=== PATIENT | female | born 1940 | race Caucasian/White ===

== ENCOUNTER 2016-09-22 10:28 | Inpatient (IN) | payer OTHER ==
[~2016-09-22] VITALS: Ht 170.2 cm; Wt 60.8 kg
--- NOTE | ~2016-09-22 | PR ---
[place], [place] PROGRESS NOTE NAME: MANN MALDONADO UNIT #: [id number] ROOM: 407 DOCTOR: SHARON HUA MD,BO BIRTHDATE: [birth year] DOS: 09/26/2016 PULMONARY PROGRESS NOTE SUBJECTIVE: The patient has been noted without any acute distress at this time. The coughing has been improving progressively. There were no symptoms of chest pain. OBJECTIVE: VITAL SIGNS: For the patient which were recorded shows the temperature noted normal, respiratory rate 18, heart rate 82, blood pressure 118/90. The pulse oxygen saturation noted 93% saturation. HEENT: Showed no acute change. NECK: Supple. CARDIOVASCULAR: S1, S2 audible. LUNGS: Noted with minimal crackles in the lung bases. ABDOMEN: Soft, nontender. Chest x-ray of the patient that was done this morning shows improving infiltration of the lower lungs bilaterally. IMPRESSION: 1. Resolving acute bacterial pneumonia for this patient with greater consolidation noted in the left lung with resolution of pleural fluid for the patient radiologically as well. 2. History of chronic obstructive pulmonary disease. PLAN OF TREATMENT: The patient could be discharged home on oral antibiotics as Levaquin. Outpatient followup recommended. Other previous treatment, therapy plan and management and abstinence from tobacco use was advised. BO HERRERA MD CM:PNTRANS [id number] BO HUA MD 09/26/16 2016 interface
--- NOTE | ~2016-09-22 | PR ---
[place], [place] PROGRESS NOTE NAME: MANN MALDONADO UNIT #: [id number] ROOM: 407 DOCTOR: SHARON HUA MD,BO BIRTHDATE: [birth year] DOS: 09/24/2016 SUBJECTIVE: She has been noted without any acute distress at this time. Comfortably resting on the bed. The coughing has been gradually subsiding. There were no symptoms of chest pain. OBJECTIVE: VITAL SIGNS: The patient showed normal temperature, respiratory rate was recorded at 20, heart rate 81, blood pressure 127/58. The pulse oxygen saturation recorded on room air 94% saturation. HEENT: Showed no new change. NECK: Supple. CARDIOVASCULAR: S1, S2 audible. LUNGS: Noted crackles and decreased breath sounds in the left lower lung. There was no wheezing. Breath sounds noted were generalized diminished bilaterally. ABDOMEN: Soft, nontender. LABORATORY DATA: BMP: Potassium 3.3, normal BUN and creatinine. CBC: Normal WBC count, hemoglobin 10.1, hematocrit 31.4. The platelet count was noted as normal. The chest x-ray 2-view that was done for the patient shows evidence of lower lobe infiltration noted in the lungs. The infiltration and consolidation for the patient was noted persistent and appeared to be increased since comparison to previous examination. COPD changes were also noted. IMPRESSION: 1. The patient with acute pneumonia that has been noted persistent at this time. The ultrasound of the chest was done, which shows very small pleural fluid at this time on the left side as well. 2. History of chronic obstructive pulmonary disease as well. PLAN OF TREATMENT: Continuation of current antibiotic for the patient monitoring the chest x-ray findings. Repeat chest in a couple of days to reassess. The small pleural fluid is related to acute pneumonia. The patient does not require any intervention as assessed with the ultrasound at the bedside, which was performed by nh. [place], [place] PROGRESS NOTE NAME: MANN MALDONADO UNIT #: [id number] ROOM: 407 DOCTOR: BO CARVAJAL MD BIRTHDATE: [birth year] BO HERRERA MD CM:PNTRANS [id number] BO HUA MD 09/25/16 0539 interface
--- NOTE | ~2016-09-22 | PR ---
[place], [place] PROGRESS NOTE NAME: MANN MALDONADO UNIT #: [id number] ROOM: 407 DOCTOR: SHARON HUA MD,BO BIRTHDATE: [birth year] DOS: 09/25/2016 PULMONARY PROGRESS NOTE SUBJECTIVE: She has been noted with coughing and expectorating sputum. Shortness of breath has been decreasing, there were no symptoms of chest pain, continued on antibiotics. OBJECTIVE: VITAL SIGNS: Normal temperature, respiratory rate 20, heart rate 77, blood pressure 108/54. Pulse oxygen saturation on 2 liters nasal cannula 94% saturation. HEENT: Showed no new change. NECK: Supple. CARDIOVASCULAR SYSTEM: S1, S2 is audible. LUNGS: The patient was noted without any wheezing. Crackles are noted in the left lower lung for the patient with decreased breath sounds. ABDOMEN: Soft, nontender. LABORATORY DATA: BMP today was noted with normal BUN and creatinine. IMPRESSION: The patient with resolving acute pneumonia with a small associated pleural fluid in the left lower lobe for this patient as well with history of chronic obstructive pulmonary disease as well. Resolution of the gastrointestinal tract symptoms. PLAN OF TREATMENT: Continue the patient's current therapy, plan of management is in progress. Usual care, other supportive therapy and care. Continuation of bronchodilator administration. BO HERRERA MD CM:PNTRANS [id number] BO HUA MD 09/26/16 1614 interface
--- NOTE | ~2016-09-22 | CON ---
[place], [place] REPORT OF CONSULTATION [id number] UNIT #: [id number] ROOM: 407 DOCTOR: BO CARVAJAL MD BIRTHDATE: [birth year] DOS: 09/23/2016 PULMONARY CONSULTATION EVALUATION AND MANAGEMENT REASON FOR CONSULTATION: Consultation done for assessment of the current acute pneumonia. HISTORY OF PRESENT ILLNESS: This is a 76-year-old white female who has been visiting. She was visiting from [place] to her son. The patient became acutely ill in the last 24 hours. The patient developed increased coughing, chest congestion as well as fever at home. The patient started with having symptoms of vomiting as well and the nausea feeling and diarrhea. The patient's symptoms have been noted progressively worse. She was brought to my office for assessment, but the patient was sent to the Emergency Room for further assessment because of the current multiple ongoing problems. The patient has been hospitalized for further medical management. She was noted with symptoms of coughing with some sputum expectoration. The patient's sputum expectoration noted only small quantity. There were no symptoms of chest pain. She does complain of symptoms of shortness of breath. Denies any wheezing. Denies any symptoms of acute chest pain. REVIEW OF SYSTEMS: CONSTITUTIONAL SYMPTOMS: Fatigue and tiredness were noted without any fever or chills. EYES: Denies any burning, redness, tenderness. EARS, NOSE, THROAT SYMPTOMS: No sore throat, hoarseness, otalgia, postnasal drainage or epistaxis. CARDIOVASCULAR SYSTEM: Denies anginal pain, edema or pain of the lower extremities. GASTROINTESTINAL SYMPTOMS: The patient noted with symptoms of diarrhea as well as vomiting a couple of times as well in the last 24 hours. There was no bleeding in the stool. Denies any abdominal pain. Nausea, vomiting and diarrhea seemed to be decreased in the last 24 hours. GENITOURINARY SYMPTOMS: Denies dysuria, suprapubic pain, hematuria. CENTRAL NERVOUS SYSTEM: Denies dizziness, headache, diplopia, syncopal episodes at this time, was complaining of symptoms of dizziness yesterday, which has been resolved. SKIN: The patient denies symptoms of abnormal lesions or rashes. Remaining systems were reviewed with the patient, they were noted all negative. PAST MEDICAL HISTORY: Was known as, 1. Chronic obstructive pulmonary disease. 2. Gastroesophageal reflux. 3. Hyperlipidemia. 4. Essential hypertension. 5. Hypothyroidism. 6. Seasonal allergic rhinitis. 7. Vitamin D deficiency. 8. Depression. [place], [place] REPORT OF CONSULTATION NAME: MANN MALDONADO UNIT #: [id number] ROOM: 407 DOCTOR: BO CARVAJAL MD BIRTHDATE: [birth year] SOCIAL HISTORY: The patient denies any history of alcohol use or any illicit drug use. Tobacco use was noted for this patient since teens, has a pack of cigarettes per day that was discontinued 25 years ago. The patient and has 4 children. PAST SURGICAL HISTORY: Noted, 1. . 2. Hysterectomy. FAMILY HISTORY: Of the patient was unknown to the patient. HOME MEDICATIONS: Noted as use of Tudorza Pressair inhaler, Ventolin HFA inhaler, Lipitor, cetirizine, Cardizem-CD, vitamin D, Lexapro, Synthroid, omeprazole, Pyridium and tramadol. DRUG ALLERGY HISTORY: The patient noted no known drug allergies. PHYSICAL EXAMINATION: GENERAL: This is a 76-year-old female who has been currently noted to be awake and alert at this time without any acute distress at the time of the assessment. The patient's height was recorded by the nursing staff as 5 feet 7 inches, weight of 134 pounds, BMI 21. VITAL SIGNS: For the patient which were recorded showed the temperature noted as 99.4 degrees Fahrenheit, respiratory rate of 18-22, heart rate of 138-84, blood pressure 101/41-114/46. Intake for the patient was recorded as 2800 mL for this patient, output was not documented, pulse oxygen saturation on 2 liters nasal cannula 93% saturation, 4 liters on admission was 91% saturation. HEENT: Examination shows head was atraumatic. Eyes nonicterus. Oral mucosa is moist at this time. NECK: Supple. CARDIOVASCULAR SYSTEM: S1, S2 is audible. LUNGS: The patient was noted without any crackles or wheezing on the right side. Decreased breath sounds noted. Scattered crackles in the left mid and the lower lung. ABDOMEN: Soft, nontender, flat. EXTREMITIES: Show no edema, clubbing or cyanosis. CENTRAL NERVOUS SYSTEM: Cranial nerves 2-12 intact. No focal deficits. MUSCULOSKELETAL SYSTEM: No acute deformities. LABORATORY DATA: Lactic acid noted 2.2 on admission, later on noted at 2.7 and 2.5 with the followup lactic acid. The PT and PTT for this patient noted on 09/22/2016 normal PT and PTT. The CBC of patient on 09/22/2016, WBC count 16.3, hemoglobin 12.9, hematocrit 38.8, platelet count of the patient 227,000, 98% segmented neutrophils. CMP of the patient on 09/22/2016, BUN 20, creatinine was normal. Glucose 115. Potassium 3.1, bilirubin 1.2. CK-MB and troponin first set was normal. Followup CK-MB and troponin of the patient 3 additional sets for the patient yesterday and this morning were normal. CBC this morning, WBC count 10.7, hemoglobin 10.7, hematocrit 32.6, platelet count 187,000. CMP this morning was noted with normal BUN and creatinine. Potassium 2.9. Albumin 2.3. [place], [place] REPORT OF CONSULTATION NAME: MANN MALDONADO UNIT #: [id number] ROOM: 407 DOCTOR: SHARON HUA MD,[facility] BIRTHDATE: [birth year] Chest x-ray of the patient 1 view was noted with evidence of pleural fluid was noted, which is small with area of infiltration in the left lower lung as well. There was no previous chest x-ray available for comparison. IMPRESSION: 1. The patient has been currently noted with suspected acute pneumonia, left lower lobe with associated pleural fluid. 2. Nausea and diarrhea, most likely recurrent due to current acute illness in the patient was suspected. 3. Hypokalemia, most likely related to the current diarrhea for this patient, which has been supplemented. 4. ____ for the patient was also noted as well. 5. Chronic obstructive pulmonary disease without any evidence of acute exacerbation. 6. Other previous medical problems noted in the past history as well. PLAN OF TREATMENT: The patient will be continued on current antibiotic at this time and monitor. The pleural fluid appeared to be small, no intervention will be necessary. Followup chest x-ray of the patient was ordered to be done in the morning for progression of the pleural fluid. If it does get enlarged, certainly thoracentesis could be done for this patient for further assessment. Symptomatic management of nausea, vomiting, diarrhea will be continued. Other supportive therapy, plan of management as well. Usual care. Order the respiratory viral panel for this patient as well to exclude any viral etiology of respiratory tract with current symptoms. Pneumonia would be considered in the patient most likely secondary to gram-positive infection, nonaspiration in the left lower lobe. Thank you for allowing me to participate in the care of this patient. BO HERRERA MD CM:CONSTR:REPORT OF CONSULTATION 1253 09/26/16 0351 interface
--- NOTE | ~2016-09-22 | PR ---
[place], [place] PROGRESS NOTE NAME: ERICAMANN UNIT #: [id number] ROOM: 407 DOCTOR: JUDY OVIEDO MD BIRTHDATE: [birth year] DOS: 09/24/2016 CARDIOLOGY PROGRESS NOTE SUBJECTIVE: The patient was seen at her bedside today 09/24/2016 for followup of her newly documented atrial fibrillation and flutter. She presented to the hospital with a chief complaint of shortness of breath and productive cough. She is visiting the local area from her home in [place] and was found to have acute respiratory failure, pneumonia, on admission. Since she has been in the hospital, she has gone into atrial fibrillation and flutter. She was treated with intravenous diltiazem and converted spontaneously to sinus rhythm. She continues to have a cough, but tells me that she is feeling better today. She is remaining in sinus rhythm. She has been able to tolerate weaning from IV diltiazem. A brief look at her echocardiogram shows normal left ventricular size and function with normal left atrial dimensions and normal valve function. PHYSICAL EXAMINATION: VITAL SIGNS: Today, her pulse is 90 and regular, blood pressure 158/62. She is afebrile. NECK: Supple. She has no jugular distention. Carotids are full without bruits. LUNGS: Respirations are unlabored. She does have few crackles at the bases. HEART: Has a regular rhythm with an S4 gallop. EXTREMITIES: Showed no edema. She does seem to be doing well on her current medical regimen. She is being treated for pneumonia and is tolerating diltiazem CD along with rivaroxaban for stroke prophylaxis. She will be treated for her pneumonia by Dr. Powers and her primary physicians. We will continue to follow her peripherally. I thank the hospitalist group for asking our advice regarding her care. [place], [place] PROGRESS NOTE NAME: MANN MALDONADO UNIT #: [id number] ROOM: 407 DOCTOR: JUDY OVIEDO MD BIRTHDATE: [birth year] JUDY OVIEDO MD CM:PNTRANS [phone] JUDY OVIEDO MD 09/25/16 0607 interface
[2016-09-22 10:28] VITALS: BP 112/44
[2016-09-22 11:19] LABS: HEMATOCRIT 38.8 % (37.0-47.0); HEMOGLOBIN 12.9 g/dl (12.0-16.0); MEAN CELL VOLUME 93.7 fl (81.0-99.0); MEAN CORPUSCULAR HGB 31.2 pg (27.0-31.0); MEAN CORPUSCULAR HGB CONC 33.2 g/dl (33.0-37.0); MEAN PLATELET VOLUME 10.9 fl (9.6-12.3); PLATELET COUNT AUTOMATED 227 10*3/uL (130-400); RED BLOOD COUNT 4.14 10*6/uL (4.10-5.10); RED CELL DISTRI WIDTH 13.5 % (0-14.5); WHITE BLOOD COUNT 16.3 10*3/uL (4.8-10.8)
[2016-09-22] MEDS ORDERED: OMEPRAZOLE D/R20 MG PO (11:20)
[2016-09-22] MEDS ORDERED: LEXAPRO20 MG PO (11:21)
[2016-09-22] MEDS ORDERED: LEVOTHYROXINE0.1 MG PO (11:21)
[2016-09-22] MEDS ORDERED: ATORVASTATIN CA20 M1 PO (11:22)
[2016-09-22] MEDS ORDERED: ADVAIR 250/501 EA INH (11:22)
[2016-09-22] MEDS ORDERED: TUDORZA PRESS400 MCG IH (11:23)
[2016-09-22] MEDS ORDERED: DILTIAZEM 24HR120 MG PO (11:23)
[2016-09-22] MEDS ORDERED: VITAMIN D50000 I3 PO (11:24)
[2016-09-22] MEDS ORDERED: ZYRTEC10 MG PO (11:24)
[2016-09-22] MEDS ORDERED: ULTRAM50 MG PO (11:25)
[2016-09-22] MEDS ORDERED: VENTOLIN H0.09 MG/AC INH (11:25)
[2016-09-22] MEDS ORDERED: PYRIDIUM100 MG PO (11:26)
[2016-09-22 11:27] LABS: INTERNATIONAL NORM RATIO 1.2 (2.0-3.5); PROTHROMBIN TIME 12.8 SECONDS (9.0-12.4)
[2016-09-22 11:35] LABS: ALBUMIN 2.9 gm/dl (3.1-4.5); ALKALINE PHOSPHATASE 78 U/L (45-117); BILIRUBIN, TOTAL 1.2 mg/dl (0.2-1.0); BUN 20 mg/dl (7-24); CARBON DIOXIDE 23 mmol/L (21-32); CHLORIDE 105 mmol/L (98-107); CPK 93 U/L (26-192); EST GLOM FILT AFRICAN AMERICAN > 60 ml/min; GLUCOSE 115 mg/dL (65-99); MAGNESIUM 1.8 mg/dL (1.5-2.1); POTASSIUM 3.1 mmol/L (3.5-5.1); SGOT/AST 17 IU/L (3-35); SGPT/ALT 15 U/L (12-78); SODIUM 139 mmol/L (136-145); TOTAL PROTEIN 6.9 gm/dL (6.4-8.2)
[2016-09-22 11:36] LABS: CKMB 1.3 ng/ml (0.5-3.6); TROPONIN I 0.023 ng/ml (<0.045)
[2016-09-22 11:36] LABS: DOHLE BODIES FEW; LYMPHOCYTE # 0.8 10*3/uL (1.3-4.4); METAMYELOCYTES 1 % (0-0); MONOCYTE # 0.3 10*3/uL (0.1-1.0); NEUTROPHILS 92 % (47-73); PLATELET SUFFICIENCY NORMAL (NORMAL); TOTAL CELLS COUNTED 100 #CELLS; TOXIC GRANULATION SLIGHT; VACUOLATION OF NEUTROPHILS SLIGHT
[2016-09-22 12:40] VITALS: BP 110/41
[2016-09-22 13:03] VITALS: BP 104/42
[2016-09-22 13:15] LABS: LA>2 REFLEX 2 HR DRAW NOW
[2016-09-22 13:23] VITALS: BP 104/42
[2016-09-22 13:40] LABS: LA>2 RFLX FOLLOW UP AT 2 HRS 2.7 mmol/L (0.4-2.0)
[2016-09-22 15:32] LABS: LA>2 REFLEX 4 HR DRAW NOW
[2016-09-22 16:00] VITALS: BP 101/41
[2016-09-22 18:27] LABS: CKMB 1.9 ng/ml (0.5-3.6); TROPONIN I 0.022 ng/ml (<0.045)
[2016-09-22 20:00] VITALS: BP 92/46
[2016-09-23] VITALS (8 sets, daily range): BP systolic 100–156; BP diastolic 43–97
[2016-09-23 00:40] LABS: CKMB 3.3 ng/ml (0.5-3.6); TROPONIN I 0.02 ng/ml (<0.045)
[2016-09-23 06:50] LABS: MEAN CELL VOLUME 94.5 fl (81.0-99.0); MEAN CORPUSCULAR HGB CONC 32.8 g/dl (33.0-37.0); MEAN PLATELET VOLUME 11.4 fl (9.6-12.3); PLATELET COUNT AUTOMATED 187 10*3/uL (130-400); RED BLOOD COUNT 3.45 10*6/uL (4.10-5.10); RED CELL DISTRI WIDTH 13.6 % (0-14.5); WHITE BLOOD COUNT 10.7 10*3/uL (4.8-10.8)
[2016-09-23 06:53] LABS: HEMATOCRIT 32.6 % (37.0-47.0); HEMOGLOBIN 10.7 g/dl (12.0-16.0)
[2016-09-23 06:58] LABS: CKMB 2.9 ng/ml (0.5-3.6); TROPONIN I 0.021 ng/ml (<0.045)
[2016-09-23 07:17] LABS: LYMPHOCYTE # 0.5 10*3/uL (1.3-4.4); MONOCYTE # 0.4 10*3/uL (0.1-1.0); NEUTROPHIL # 9.7 10*3/uL (2.3-7.9); NEUTROPHILS 91 % (47-73); PLATELET SUFFICIENCY NORMAL (NORMAL); TOTAL CELLS COUNTED 100 #CELLS
[2016-09-23 07:22] LABS: ALBUMIN 2.3 gm/dl (3.1-4.5); ALKALINE PHOSPHATASE 67 U/L (45-117); BILIRUBIN, TOTAL 0.6 mg/dl (0.2-1.0); CARBON DIOXIDE 23 mmol/L (21-32); CHLORIDE 112 mmol/L (98-107); CHOLESTEROL 96 mg/dL (<200); EST GLOM FILT AFRICAN AMERICAN > 60 ml/min; GLUCOSE 90 mg/dL (65-99); HDL CHOLESTEROL 43 mg/dl (40-60); LDL CHOLESTEROL 41 mg/dL (9-159); MAGNESIUM 1.7 mg/dL (1.5-2.1); PHOSPHOROUS 1.4 mg/dL (2.5-4.9); POTASSIUM 2.9 mmol/L (3.5-5.1); SGOT/AST 14 IU/L (3-35); SGPT/ALT 9 U/L (12-78); SODIUM 145 mmol/L (136-145); TOTAL PROTEIN 5.5 gm/dL (6.4-8.2); TRIGLYCERIDES 61 mg/dl (<150); VLDL CHOLESTEROL 12 mg/dL (6-40)
[2016-09-23 07:28] LABS: BUN 10 mg/dl (7-24)
[2016-09-23 07:29] LABS: INTERNATIONAL NORM RATIO 1.1 (2.0-3.5); PROTHROMBIN TIME 11.8 SECONDS (9.0-12.4)
[2016-09-23 07:33] LABS: VITAMIN D, 25-HYDROXY 26.2 ng/mL (30-100)
[2016-09-23 07:34] LABS: FOLIC ACID 6.95 ng/mL (>5.38)
[2016-09-23 07:42] LABS: HEMOGLOBIN A1c 5.8 % (4.8-5.6)
[2016-09-24] VITALS (12 sets, daily range): BP systolic 120–158; BP diastolic 52–79
[2016-09-24 06:11] LABS: BASO % 0.3 % (0.0-1.0); EOS % 0.5 % (1.0-4.0); HEMATOCRIT 31.4 % (37.0-47.0); HEMOGLOBIN 10.1 g/dl (12.0-16.0); LYMPH % 12.3 % (27.0-41.0); MEAN CELL VOLUME 94.6 fl (81.0-99.0); MEAN CORPUSCULAR HGB 30.4 pg (27.0-31.0); MEAN CORPUSCULAR HGB CONC 32.2 g/dl (33.0-37.0); MEAN PLATELET VOLUME 10.7 fl (9.6-12.3); MONO # 0.4 10*3/uL (0.1-1.0); MONO % 4.7 % (3.0-9.0); NEUT # 6.5 10*3/uL (2.3-7.9); NEUT % 81.7 % (47.0-73.0); PLATELET COUNT AUTOMATED 196 10*3/uL (130-400); RED BLOOD COUNT 3.32 10*6/uL (4.10-5.10); RED CELL DISTRI WIDTH 13.4 % (0-14.5); WHITE BLOOD COUNT 7.9 10*3/uL (4.8-10.8)
[2016-09-24 06:34] LABS: BUN 5 mg/dl (7-24); CARBON DIOXIDE 23 mmol/L (21-32); CHLORIDE 113 mmol/L (98-107); EST GLOM FILT AFRICAN AMERICAN > 60 ml/min; GLUCOSE 85 mg/dL (65-99); MAGNESIUM 1.7 mg/dL (1.5-2.1); PHOSPHOROUS 1.7 mg/dL (2.5-4.9); POTASSIUM 3.3 mmol/L (3.5-5.1); SODIUM 144 mmol/L (136-145)
[2016-09-24] MEDS ORDERED: LEVAQUIN750 M1 PO (11:32)
[2016-09-24] MEDS ORDERED: XARE20MG PO (11:34)
[2016-09-25] VITALS: BP 132/56
[2016-09-25 06:50] LABS: BUN 3 mg/dl (7-24); CARBON DIOXIDE 24 mmol/L (21-32); CHLORIDE 107 mmol/L (98-107); EST GLOM FILT AFRICAN AMERICAN > 60 ml/min; GLUCOSE 89 mg/dL (65-99); PHOSPHOROUS 3.4 mg/dL (2.5-4.9); POTASSIUM 3.9 mmol/L (3.5-5.1); SODIUM 142 mmol/L (136-145)
[2016-09-25 08:00] VITALS: BP 108/54; BP 110/62
[2016-09-25 12:00] VITALS: BP 110/60
[2016-09-25 16:00] VITALS: BP 132/52
[2016-09-25 20:00] VITALS: BP 136/55
[2016-09-26] VITALS: BP 138/62
[2016-09-26 08:00] VITALS: BP 118/90
[2016-09-26] MEDS ORDERED: K-PHOS500 MG PO (11:14)
[2016-09-26] MEDS ORDERED: B12,B-12,B 12500 MC1 PO (11:14)
[2016-09-26] MEDS ORDERED: TYLENOL325 M2 PO (11:14)
[2016-09-26 18:09] LABS: ORGANISM ID Not indicated. (.); SPECIMEN SOURCE Urine (.); STREPTOCOCCUS PNEUMONIAE AG Negative (Negative)
== END 2016-09-26 11:41 | disposition home or self-care (01) | DRG 871 ==
LOC: ED 10:28 → EDHOLD 12:25 → 4E 12:25
PROVIDERS: Internal Medicine; Registered Nurse
DX: A41.9 Sepsis, unspecified organism (principal); J96.01 Acute respiratory failure with hypoxia; E43 Unspecified severe protein-calorie malnutrition; I48.92 Unspecified atrial flutter; J15.9 Unspecified bacterial pneumonia; J44.9 Chronic obstructive pulmonary disease, unspecified; I48.91 Unspecified atrial fibrillation; E87.8 Other disorders of electrolyte and fluid balance, not elsewhere classified; R65.20 Severe sepsis without septic shock; K21.9 Gastro-esophageal reflux disease without esophagitis; F32.9 Major depressive disorder, single episode, unspecified; E78.5 Hyperlipidemia, unspecified; E87.6 Hypokalemia; E03.9 Hypothyroidism, unspecified; J30.2 Other seasonal allergic rhinitis; I10 Essential (primary) hypertension; E53.8 Deficiency of other specified B group vitamins; E83.39 Other disorders of phosphorus metabolism; R73.03 Prediabetes; Z79.01 Long term (current) use of anticoagulants; Z79.899 Other long term (current) drug therapy; Z90.710 Acquired absence of both cervix and uterus; Z79.51 Long term (current) use of inhaled steroids; Z87.891 Personal history of nicotine dependence; Z68.21 Body mass index [BMI] 21.0-21.9, adult